=== PATIENT | male | born 2000 | race Two or more races ===

== ENCOUNTER 2020-09-08 13:44 | Emergency (ER) | payer OTHER ==
--- NOTE | 2020-09-08 14:44 | ER Document Report ---
ED General - General Chief Complaint: Sore Throat Stated Complaint: SORE THROAT Time Seen by Provider: 09/08/20 14:23 Mode of Arrival: Ambulatory Information source: Patient Notes: 20-year-old male coming in today because he is in a training program is insisting that he be tested for coronavirus. He has a very sore throat for about a day to a day and a half. No fevers or chills. No headache. No body aches. No congestion. No change in smell or taste sensation. No nausea vomiting or diarrhea. No sick contacts. - Related Data Allergies/Adverse Reactions: No Known Allergies Allergy (Verified 09/08/20 14:34) Past Medical History - Social History Smoking Status: Current Every Day Smoker Frequency of alcohol use: Occasional Drug Abuse: None Family History: Reviewed & Not Pertinent Review of Systems - Review of Systems Notes: Constitutional: No fevers. No chills. EENT: No eye redness. No eye pain. No ear pain. + Sore throat Cardiovascular: No chest pain. No palpitations. Respiratory: No cough. No shortness of breath. No respiratory distress. Gastrointestinal: No abdominal pain. No nausea, vomiting, or diarrhea. Genitourinary: Atraumatic. No lesions. No pain. No discharge. Musculoskeletal: Atraumatic. No swelling. No deformities. Skin: No rash or lesions. Lymphatic: No swollen lymph nodes. Neurologic: No headache. No syncope. Psychiatric: No suicidal or homicidal ideation. Physical Exam - Vital signs Vitals: Temp Pulse Resp BP Pulse Ox 97.8 F 60 18 132/70 H 100 09/08/20 13:49 09/08/20 13:49 09/08/20 13:49 09/08/20 13:49 09/08/20 13:49 Course - Re-evaluation Re-evalutation: 09/08/20 14:43 Very low probability for Covid but patient is here specifically for Covid testing. He will be tested and advised that he will need to quarantine until he gets his results in about 3 days. Unimpressed by the posterior pharynx. At the time the patient was seen, strep and influenza was already sent. Will await the results of these I suspect neither will be positive. 09/08/20 15:32 Strep test is negative. Flu test negative. We will start him on some prednisone for the pain and the swelling. This is probably a viral pharyngitis. Covid testing is pending although I strongly doubt that is the source of this sore throat. - Vital Signs Vital signs: Temp Pulse Resp BP Pulse Ox 97.8 F 60 18 132/70 H 100 09/08/20 13:49 09/08/20 13:49 09/08/20 13:49 09/08/20 13:49 09/08/20 13:49 Discharge - Discharge Clinical Impression: Elevated blood pressure reading, Person under investigation for COVID-19 Pharyngitis Qualifiers: Pharyngitis/tonsillitis etiology: unspecified etiology Qualified Code(s): J02.9 - Acute pharyngitis, unspecified Condition: Good Disposition: HOME, SELF-CARE Instructions: COVID-19 Guidance for Persons Under Investigation, Sore Throat ([facility]) Additional Instructions: Your sore throat is most likely caused by a viral infection. Your Covid test will take about 3 days. Please quarantine yourself until you know your results. Prednisone will help with the redness and swelling in your throat and help with the pain as well. You will not need any antibiotics at this time. Prescriptions: Prednisone [Deltasone 20 mg Tablet] 2 tab PO DAILY 5 Days #10 tablet Forms: Elevated Blood Pressure
[2020-09-08 15:11] LABS: A TYPE INFLUENZA AG NEGATIVE (NEGATIVE); B INFLUENZA AG NEGATIVE (NEGATIVE)
[2020-09-08 16:08] VITALS: BP 129/73
== END 2020-09-08 16:10 | disposition home or self-care (01) ==
LOC: ER 13:44
DX: J02.9 Acute pharyngitis, unspecified (principal); R03.0 Elevated blood-pressure reading, without diagnosis of hypertension; F17.200 Nicotine dependence, unspecified, uncomplicated; Z20.828 Contact with and (suspected) exposure to other viral communicable diseases
CPT/HCPCS: 99283; 87070; 87880; 87635; 87804; C9803